=== PATIENT | male | born 1960 | race Caucasian/White ===

== ENCOUNTER → 2017-08-03 | Outpatient (CLI) | payer BC ==
[2017-08-03 12:40] LABS: Partial Thromboplastin Time 22.7 sec (22.0-30.0); Prothrombin Time 9.9 sec (9.0-12.0)
[2017-08-03 12:53] LABS: HCT 38.3 % (39.0-53.0); HGB 13.8 gm/dL (13.0-17.5); MCV 83.3 fL (80.0-100.0); Platelet Count 251 k/uL (150-450); RBC 4.59 m/uL (4.30-5.90); RDW 12.9 % (11.5-15.5)
[2017-08-03 12:55] LABS: Anion Gap 14 mmol/L; Blood Urea Nitrogen 14 mg/dL (9-20); Carbon Dioxide 27 mmol/L (22-30); Chloride 103 mmol/L (98-107); Glucose 114 mg/dL (74-99); Potassium 3.9 mmol/L (3.5-5.1); Sodium 144 mmol/L (137-145)
[2017-08-03 12:56] LABS: ALT 34 U/L (21-72); AST 39 U/L (17-59); Albumin 4.2 g/dL (3.5-5.0); Alkaline Phosphatase 108 U/L (38-126); Calcium 9.7 mg/dL (8.4-10.2); Total Bilirubin 0.6 mg/dL (0.2-1.3); Total Protein 7.2 g/dL (6.3-8.2)
[2017-08-03 13:06] LABS: Appearance,Urine Clear (Clear); Bilirubin,Urine Negative (Negative); Blood,Urine Moderate (Negative); Color,Urine Yellow; Glucose,Urine (UA) Negative (Negative); Ketones,Urine Negative (Negative); Leukocyte Esterase,Urine Negative (Negative); Mucus,Urine Rare /hpf; Nitrite,Urine Negative (Negative); PH, Urine 5.5 (5.0-8.0); Protein,Urine Trace (Negative); RBC,Urine 40 /hpf (0-5); Specific Gravity,Urine 1.018 (1.001-1.035); Urobilinogen,Urine <2.0 mg/dL (<2.0); WBC,Urine 3 /hpf (0-5)
== END | disposition home or self-care (01) ==
LOC: LABPAT 12:00
PROVIDERS: ATTEND Orthopaedic Surgery
DX: Z01.812 Encounter for preprocedural laboratory examination (principal); Z01.818 Encounter for other preprocedural examination
CPT/HCPCS: 36415; 80053; 81001; 85027; 85610; 85730; 87070; 93005

== ENCOUNTER 2017-08-20 11:03 | Inpatient (IN) | payer BC ==
[2017-08-08 16:23] VITALS: BMI 39.3
[~2017-08-20 11:03] MED LIST: ACETAMINOPHEN TAB 500 MG TAB PO ONE; DEXAMETHASONE SOD PHOSPHATE 10 MG/ML 1 ML VIAL IV ONE; MELOXICAM 7.5 MG TAB PO ONE; MIDAZOLAM 2 MG/2 ML VIAL IV PRN; MORPHINE SULFATE 4MG/4ML SYRG IV PRN; ONDANSETRON 4 MG/2 ML VIAL IVP ONE; ROPIVACAINE 246.25 MG, EPINEPHrine 0.5 MG, KETOROLAC 30 MG, cloNIDine HCL/PF 80 MCG, WA... MISCELLANE ONE; TRANEXAMIC ACID 1,000 MG in SODIUM CHLORIDE 0.9% 50 ML IVPB ONE
[2017-08-20] MEDS ORDERED: LIDOCAINE 1% 20 ML VIAL (10MG/ML) FOR IV START INTRADERMA ONE (13:38)
[2017-08-20] MEDS ORDERED: LACTATED RINGERS 1,000 ML IV ONE ×2 (13:40→15:56)
[2017-08-20] MEDS ORDERED: ROPIVACAINE 1,100 MG, SODIUM CHLORIDE 0.9% 330 ML MISCELLANE PRN ×2 (14:23)
--- NOTE | 2017-08-20 14:24 | P.ONQ ---
Anesthesiology Proc Note - PNB - Peripheral Nerve Block Performed Left Adductor Canal Infusion Time Out Performed: Yes (4111) Procedure Start Time: 14:02 Procedure Stop Time: 14:16 Indication: Acute Post-Operative Pain, Requested by physician Sedation Type: Sedate with meaningful contact maintained Preparation: Sterile Prep Position: Supine Needle Types: Mari Needle Size: 100mm (4") Needle Gauge: 20 Technique: Ultrasound Injectate: 0.5% Ropivacaine (see comment for volume) (30 mls Ropivacaine 0.5%) Blood Aspirated: No Pain Paresthesia on Injection Noted: No Resistance on Injection: Normal Events: Uneventful and Well Tolerated
[2017-08-20] MEDS ORDERED: SODIUM CHLORIDE 0.9% 100 ML BAG ONE (14:25)
[2017-08-20] MEDS ORDERED: PHENYLEPHRINE-0.9% NACL SYG 1 MG/10 ML SYRINGE ONE (14:25)
[2017-08-20] MEDS ORDERED: MIDAZOLAM 2 MG/2 ML VIAL ONE (14:25)
[2017-08-20] MEDS ORDERED: PROPOFOL 10 MG/ML 20 ML VIAL IV ONE (14:25)
[2017-08-20] MEDS ORDERED: fentaNYL (PF) 50 MCG/ML 2 ML AMP ONE (14:25)
[2017-08-20] MEDS ORDERED: LIDOCAINE 1% INJ 10MG/ML (20 ML MDV) ONE (14:25)
[2017-08-20] MEDS ORDERED: TRANEXAMIC ACID 1,000 MG/10 ML VIAL ONE (14:25)
[2017-08-20] MEDS ORDERED: ceFAZolin 3,000 MG in SODIUM CHLORIDE 0.9% IRRIGATIO 3,000 ML IRRIGATION ONE (15:08)
--- NOTE | 2017-08-20 15:55 | P.OP ---
Date of Procedure: 08/20/17 Preoperative Diagnosis: Severe osteoarthritis left knee Postoperative Diagnosis: Severe osteoarthritis left knee Procedure(s) Performed: Left total knee arthroplasty Implants: Chaudhari and Nephew Oxinium femoral component size 7, left Chaudhari & Nephew Donna II left nonporous tibial baseplate size 7 Chaudhari [employer] Nephew size 9 mm Legion XLPE dished articular insert, size 7-8 Chaudhari [employer] Nephew Donna II resurfacing patellar component, 35 mm All components were cemented using Marta bone cement.. The articulation is Oxinium on polyethylene. Anesthesia: spinal Surgeon: Lui Lainez [employer] Inspector #1: Linh Lion Estimated Blood Loss (ml): 50 Pathology: other (Bone and cartilage) Condition: stable Disposition: PACU Indications for Procedure: After failure of conservative treatment we discussed the surgical and nonsurgical treatment options at length. Patient wishes to proceed with a total knee arthroplasty. Complications specific to this procedure were discussed at length, including but not limited to infection, bleeding, stiffness , and nerve injury. Patient is aware of all these complications and informed consent was obtained Operative Findings: The operative findings are consistent with severe osteoarthritis of the left knee Description of Procedure: Patient was seen in the preoperative area consent was reviewed and operative site was marked with a skin marker. An adductor canal pain catheter was placed by anesthesia in the preoperative area. Patient was then brought to the operating room and given preoperative antibiotics intravenously. A spinal anesthetic was administered by the anesthesia department. A tourniquet was placed on the upper thigh and the lower extremity was prepped and draped in usual sterile fashion. A gram of transexamic acid was given. A universal timeout was then performed which confirmed the patient's name, surgical site, ALLERGIES, and consent. The lower extremity was then exsanguinated and tourniquet was inflated to 250 mmHg. A standard and anterior midline approach to the knee was performed. The skin and subcutaneous tissue was dissected down to the patellar tendon. A medial parapatellar arthrotomy was then performed. The knee was then extended, the patellar was everted, and the knee was again flexed. Anterior horns of both menisci were excised, and a release was performed to the posterior medial aspect of the knee. On gross visual inspection, there was complete loss of articular cartilage in the medial and patellofemoral joint spaces. There was also significant cartilage damage in the lateral compartment. There were multiple periarticular osteophytes which were then removed with a Ronguer. The femoral canal was then opened with the appropriate drill, and the intramedullary femoral cutting guide was then placed and set for 4 of valgus. The distal femoral cutting block was then pinned in place, and the distal femur was then cut. The cutting block was then removed and the cut was checked for flatness. Next, the sizing guide was then placed and set for 3 external rotation based off of the epicondylar axis and Whitesides line. After the femur was sized, the appropriate 4-in-1 cutting block was then pinned in place. The anterior condyles were cut without notching. The posterior and chamfer cuts were performed while protecting the collateral ligaments. The cutting block was then removed, and the femoral canal was plugged with autologous bone. Attention was then directed to the tibia. The remaining ACL was removed with a Ronguer, and the tibia was then gently subluxed forward with a large bent knee retractor. Any remaining menisci was excised. The posterior lateral corner was cauterized in order to cauterize the lateral geniculate artery. The extra medullary tibial cutting guide was then placed, set for the appropriate rotation , slope, and depth of resection. The proximal tibia cutting guide was then pinned in place. Proximal tibia was then cut and sized. Next trials were then placed with the appropriate-sized insert. The knee was able to fully extend and flex to 130 and was stable throughout all range of motion. The knee was then extended, patella everted. Patella was then measured, and then using an osteotomy guide, the patella was cut at the appropriate level. The patella was then measured and drilled and the patella trial was then placed. The knee was then taken through range of motion with the patella trial and the patella tracked normally. The knee was then extended patella trial was then removed and the patella was everted. Knee was then flexed and lug holes were drilled through the femoral trial and the femoral trial was then removed. The tibial was then exposed, and the tibial broach guide was then pinned in place after it was set for the appropriate rotation to allow for the most coverage without overhang. The tibia was then reamed and broached. The cut surfaces of bone were then irrigated with pulsatile lavage. The posterior structures were injected with the ropivacaine solution. The knee was also irrigated with Irrisept solution. The components were then opened, the cement was mixed, and the components were then cemented in place. The cement was allowed to harden with the knee in full extension. While the cement was hardening, the remaining soft tissues were then injected with a ropivacaine solution, which consisted of 246.25 mg of ropivacaine, 0.5 mg of epinephrine, 30 mg of Toradol, 80 g of clonidine, and 48.45 mL of sterile water, for a total of 100 mL of fluid injected. After the cemented hardened. The tourniquet was released, and hemostasis was obtained. A second gram of transexamic acid was given. The knee was again irrigated. The knee was again taken through range of motion and found to be stable throughout all range of motion of 0-130 , and the patella tracked normally. The fascia was then closed with #2 strata fix suture. The subcutaneous tissue was closed with 3-0 Vicryl and 3-0 strata fix. Dermabond glue was used for the skin and placed with the knee in flexion. The patient was placed in a sterile silver dressing. Patient was then transferred to recovery room in stable condition. The assistant facility manager LISSETH Humphrey was required due the complexity surgery and the need for a skilled surgical tech. She assisted in positioning, draping, retraction, and closure of the wound.
[2017-08-20] MEDS ORDERED: hydrOXYzine PAMOATE 25 MG CAP PO PRN (16:28)
[2017-08-20] MEDS ORDERED: MORPHINE SULFATE 4MG/4ML SYRG IVP PRN ×3 (16:28)
[2017-08-20] MEDS ORDERED: NA PHOS,M-B/NA PHOS,DI-BA 133 ML ENEMA RECTAL PRN (16:28)
[2017-08-20] MEDS ORDERED: ONDANSETRON 4 MG/2 ML VIAL IVP PRN (16:28)
[2017-08-20] MEDS ORDERED: DIAZEPAM 5 MG TAB PO PRN ×2 (16:28)
[2017-08-20] MEDS ORDERED: BISACODYL 10 MG SUPP RECTAL PRN (16:28)
[2017-08-20] MEDS ORDERED: HYDROcodone/APAP 5-325MG 1 EACH TAB PO PRN ×2 (16:28)
[2017-08-20] MEDS ORDERED: NALOXONE 0.4 MG/ML 1 ML VIAL IV PRN (16:28)
[2017-08-20] MEDS ORDERED: MAGNESIUM HYDROXIDE 2,400 MG/10 ML CUP PO PRN (16:28)
--- NOTE | 2017-08-20 16:53 | XR ---
EXAMINATION TYPE: XR knee limited LT DATE OF EXAM: 08/20/2017 COMPARISON: NONE HISTORY: Postop knee surgery TECHNIQUE: 2 views FINDINGS: There is a left knee prosthesis. Components appear in anatomic position. IMPRESSION: No complicating process seen.
[2017-08-20] MEDS: LACTATED RINGERS 1,000 ML IV SCH (17:43)
--- NOTE | 2017-08-20 18:11 | P.CONS ---
History of Present Illness - Reason for Consult Recommendations regarding hyperlipidemia medications perioperative consulta - History of Present Illness Patient was admitted for left knee arthroplasty patient successfully underwent surgery patient is clinically doing well patient does have history of sleep apnea hyperlipidemia. Patient denied any fever chills patient did not pass gas and but does have good bowel sounds Review of Systems REVIEW OF SYSTEMS: CONSTITUTIONAL: No fever, no malaise, no fatigue. HEENT: No recent visual problems or hearing problems. Denied any sore throat. CARDIOVASCULAR: No chest pain, orthopnea, PND, no palpitations, no syncope. PULMONARY: No shortness of breath, no cough, no hemoptysis. GASTROINTESTINAL: No diarrhea, no nausea, no vomiting, no abdominal pain. Normoactive bowel sounds. NEUROLOGICAL: No headaches, no weakness, no numbness. HEMATOLOGICAL: Denies any bleeding or petechiae. GENITOURINARY: Denies any burning micturition, frequency, or urgency. MUSCULOSKELETAL/RHEUMATOLOGICAL: Denies any joint pain, swelling, or any muscle pain. ENDOCRINE: Denies any polyuria or polydipsia. The rest of the 14-point review of systems is negative. Past Medical History Past Medical History: Osteoarthritis (OA), Sleep Apnea/CPAP/BIPAP Additional Past Medical History / Comment(s): uses CPAP, currently has lower right abd. hernia History of Any Multi-Drug Resistant Organisms: None Reported Past Surgical History: Cholecystectomy, Hernia Repair, Orthopedic Surgery Additional Past Surgical History / Comment(s): arthroscopy knees, sinus surg., testicular torsion, pilonidal cyst removed Past Anesthesia/Blood Transfusion Reactions: No Reported Reaction Past Psychological History: No Psychological Hx Reported Smoking Status: Never smoker Past Alcohol Use History: Occasional Past Drug Use History: None Reported - Past Family History Brother(s) Family Medical History: Cancer Medications and Allergies Home Medications Medication Instructions Recorded Confirmed Type Aspirin 81 mg PO DAILY 08/08/17 08/20/17 History Atorvastatin [Lipitor] 10 mg PO DAILY@1600 08/08/17 08/20/17 History Cetirizine HCl [Zyrtec] 10 mg PO DAILY 08/08/17 08/20/17 History Multivitamin [Men's Multi-Vitamin] 1 tab PO DAILY 08/08/17 08/20/17 History Allergies Allergy/AdvReac Type Severity Reaction Status Date / Time No Known Allergies Allergy Verified 08/20/17 17:53 Physical Exam Vitals: Vital Signs Temp Pulse Pulse Resp BP BP Pulse Ox 08/20/17 17:08 76 16 124/60 97 08/20/17 16:57 70 16 122/58 95 08/20/17 16:42 75 16 124/63 93 L 08/20/17 16:27 96.8 F L 76 18 118/67 91 L 08/20/17 13:36 97.8 F 86 18 160/80 94 L Intake and Output 08/20/17 08/20/17 08/20/17 06:59 14:59 22:59 Intake Total 1050 101 Output Total 50 Balance 1050 51 Intake: IV 1050 101 Output: Estimated Blood Loss 50 Other: Weight 131.542 kg PHYSICAL EXAMINATION: GENERAL: The patient is alert and oriented x3, not in any acute distress. Well developed, well nourished. HEENT: Pupils are round and equally reacting to light. EOMI. No scleral icterus. No conjunctival pallor. Normocephalic, atraumatic. No pharyngeal erythema. No thyromegaly. CARDIOVASCULAR: S1 and S2 present. No murmurs, rubs, or gallops. PULMONARY: Chest is clear to auscultation, no wheezing or crackles. ABDOMEN: Soft, nontender, nondistended, normoactive bowel sounds. No palpable organomegaly. MUSCULOSKELETAL: Deferred to the orthopedic surgery EXTREMITIES: No cyanosis, clubbing, or pedal edema. NEUROLOGICAL: Gross neurological examination did not reveal any focal deficits. SKIN: No rashes. Assessment and Plan Plan: -Hyperlipidemia patient will be resumed on a statin -sleep apnea patient continue his CPAP machine -Left knee arthroplasty: Pain management and DVT prophylaxis per primary service
[2017-08-20] MEDS ORDERED: ASPIRIN 325 MG TAB PO SCH (21:00)
[2017-08-20] MEDS ORDERED: SENNOSIDES-DOCUSATE SODIUM 1 EACH TAB PO SCH (21:00)
[2017-08-20] MEDS: SODIUM CHLORIDE 0.9% 1,000 ML IV SCH (22:17)
[2017-08-21] MEDS: LACTATED RINGERS 1,000 ML IV SCH (05:26)
--- NOTE | 2017-08-21 06:57 | P.PN ---
Progress Note - Text Progress Note Date: 08/21/17 57 yo male, status post left total knee replacement. Patient received the adductor canal catheter. Ropivacaine 0.2% at 8 mls/hr. Patient was seen today at 7:15 AM. Patient was sitting in bed comfortably. VAS score of 0/10 no complains overnight. Assessment and plan: patient will be sent home with the adductor canal pump. Adequate pain control.
[2017-08-21 07:34] LABS: Basophils % (A) 0 %; Eosinophils % (A) 0 %; HCT 36.2 % (39.0-53.0); HGB 12.8 gm/dL (13.0-17.5); Lymphocytes # (A) 1.7 k/uL (1.0-4.8); Lymphocytes % (A) 12 %; MCH 29.8 pg (25.0-35.0); MCHC 35.2 g/dL (31.0-37.0); MCV 84.7 fL (80.0-100.0); Mean Platelet Volume 7.4; Monocytes # (A) 0.8 k/uL (0-1.0); Monocytes % (A) 6 %; Neutrophils # (A) 11.4 k/uL (1.3-7.7); Neutrophils % (A) 81 %; Platelet Count 245 k/uL (150-450); RBC 4.28 m/uL (4.30-5.90); RDW 12.9 % (11.5-15.5); WBC 14.2 k/uL (3.8-10.6)
--- NOTE | 2017-08-21 08:48 | P.DS ---
Providers Date of admission: 08/20/17 13:14 Expected date of discharge: 08/21/17 Attending physician: Lui Lainez Consults: 08/20/17 16:28 Consult Physician Routine Consulting Provider: Corona Paris Consult Reason/Comments: medical management Do you want consulting provider notified?: Yes 08/20/17 16:56 Consult Physician Routine Consulting Provider: Baldemar Shane Consult Reason/Comments: medical managment Do you want consulting provider notified?: Yes Primary care physician: Corona Paris - Discharge Diagnosis(es) (1) Primary osteoarthritis of left knee Current Visit: Yes Status: Acute (2) S/P total knee arthroplasty Current Visit: Yes Status: Acute Hospital Course: This is a 57-year-old male with known history of degenerative arthritis of the left knee. The patient presents for evaluation. After discussion and consideration patient elects to proceed with total knee arthroplasty. The patient is seen preoperatively by Dr. Lainez and medically cleared for surgery by their primary care physician. Patient is admitted to [facility] on 08/20/2017 for total knee arthroplasty. The procedures performed without complication or sequelae. The patient is doing well postoperatively. Labs and vital signs are stable on day of discharge. On day of discharge patient's knee incision is healing well. There is minimal erythema. There is no drainage noted at this time. There is minimal soft tissue swelling to the knee. Patient has full foot and ankle motion without difficulty or pain. Neurovascular status to the left lower extremity is intact. Patient is discharged home in good condition. Please see med rec for accurate list of home medications. Plan - Discharge Summary Discharge Rx Participant: Yes New Discharge Prescriptions: New Aspirin 325 mg PO BID #60 tab HYDROcodone/APAP 5-325MG [[place] 5-325] 1 - 2 tab PO Q4-6H PRN #90 tab PRN Reason: Pain Sennosides [Senokot] 1 tab PO BID #60 tablet No Action Cetirizine HCl [Zyrtec] 10 mg PO DAILY Atorvastatin [Lipitor] 10 mg PO DAILY@1600 Aspirin 81 mg PO DAILY Multivitamin [Men's Multi-Vitamin] 1 tab PO DAILY Discharge Medication List Aspirin 81 mg PO DAILY 08/08/17 [History] Atorvastatin [Lipitor] 10 mg PO DAILY@1600 08/08/17 [History] Cetirizine HCl [Zyrtec] 10 mg PO DAILY 08/08/17 [History] Multivitamin [Men's Multi-Vitamin] 1 tab PO DAILY 08/08/17 [History] Aspirin 325 mg PO BID #60 tab 08/21/17 [Rx] HYDROcodone/APAP 5-325MG [[place] 5-325] 1 - 2 tab PO Q4-6H PRN #90 tab 08/21/17 [ Rx] Sennosides [Senokot] 1 tab PO BID #60 tablet 08/21/17 [Rx] Follow up Appointment(s)/Referral(s): Corona Paris DO [Primary Care Provider] - 1 Week Lui Lainez DO [Doctor of Osteopathic Medicine] - 2 Weeks Ambulatory/Diagnostic Orders: Continuous Passive Motion (CPM) Machine [DME.AMB1] Time Frame: 3 Weeks, Location : Determined By Patient Activity/Diet/Wound Care/Special Instructions: Weightbearing as tolerated with a walker CPM 5-6h daily Leave dressing intact. May be removed by home care nurse in 10-14 days. May shower with dressing on. [facility] with questions or concerns [phone] Discharge Disposition: HOME WITH HOME HEALTH SERVICES
[2017-08-21] MEDS ORDERED: ASPIRIN 81 MG PO SCH (09:00)
[2017-08-21] MEDS ORDERED: MELOXICAM 7.5 MG TAB PO SCH (09:00)
[2017-08-21] MEDS: SODIUM CHLORIDE 0.9% 1,000 ML IV SCH (10:23)
[2017-08-21] MEDS ORDERED: ASPIRIN 325 MG TAB PO SCH (10:30)
[2017-08-21 14:54] VITALS: BP 109/62; PULSE 85; RESP 18; TEMP 97.6
[2017-08-21] MEDS ORDERED: ATORVASTATIN 10 MG TAB PO SCH (16:00)
--- NOTE | 2017-08-22 12:35 | CDI ---
Last Revision, April 2017 Documentation Clarification Form Date: 08/22/17 From: Lyn Herrera Admit Date: 08/20/2017 1:14:00 PM Patient Name: Corona Gilliland Visit Number: [id number] Discharge Date: 08/21/17 ATTENTION: The Clinical Documentation Specialists (CDI) and [facility] Coding Staff appreciate your assistance in clarifying documentation. Please respond to the clarification below the line at the bottom and electronically sign. The CDI & [facility] Coding staff will review the response and follow-up if needed. Please note: Queries are made part of the Legal Health Record. If you have any questions, please contact the author of this message via ITS. Dr. Lui Lainez Above normal BMI is documented in the scanned consult. Patient history/risk factors: above normal BMI Clinical Indicators: BMI 39.3 Please document if the patient 1. Obese 2. Morbidly Obese 3. other MTDD
--- NOTE | 2017-08-27 14:51 | CDI ---
Last Revision, April 2017 Documentation Clarification Form Date: 08/27/17 From: Lyn Herrera Admit Date: 08/20/2017 1:14:00 PM Patient Name: Corona Gilliland Visit Number: [id number] Discharge Date: 08/21/17 ATTENTION: The Clinical Documentation Specialists (CDI) and [facility] Coding Staff appreciate your assistance in clarifying documentation. Please respond to the clarification below the line at the bottom and electronically sign. The CDI & [facility] Coding staff will review the response and follow-up if needed. Please note: Queries are made part of the Legal Health Record. If you have any questions, please contact the author of this message via ITS. Dr. Lui Lainez Above normal BMI is documented in the scanned consult. Patient history/risk factors: above normal BMI Clinical Indicators: BMI 39.3 Please document if the patient 1. Obese 2. Morbidly Obese 3. other MTDD
== END 2017-08-21 16:30 | disposition home health service (06) | DRG 470 ==
LOC: 2ORMAIN 13:14 → 3SUR 16:22
PROVIDERS: ADMIT Orthopaedic Surgery; ATTEND Orthopaedic Surgery
PROC: 0SRD069 Replacement of Left Knee Joint with Oxidized Zirconium on Polyethylene Synthetic Substitute, Cemented, Open Approach (ICD-10-PCS; principal; 2017-08-20 16:00)
DX: M17.0 Bilateral primary osteoarthritis of knee (principal); E78.5 Hyperlipidemia, unspecified; M25.762 Osteophyte, left knee; G47.33 Obstructive sleep apnea (adult) (pediatric); M48.19 Ankylosing hyperostosis [Forestier], multiple sites in spine; M54.17 Radiculopathy, lumbosacral region; R73.09 Other abnormal glucose; Z90.49 Acquired absence of other specified parts of digestive tract; Z87.19 Personal history of other diseases of the digestive system; Z79.899 Other long term (current) drug therapy; Z79.82 Long term (current) use of aspirin; Z80.9 Family history of malignant neoplasm, unspecified; Z87.438 Personal history of other diseases of male genital organs; Z79.1 Long term (current) use of non-steroidal anti-inflammatories (NSAID); Z82.49 Family history of ischemic heart disease and other diseases of the circulatory system
CPT/HCPCS: 85025; 88300

== ENCOUNTER → 2020-09-02 | Outpatient (CLI) | payer BC ==
--- NOTE | 2020-09-02 10:13 | CT ---
EXAMINATION TYPE: CT urogram wo/w con DATE OF EXAM: 09/02/2020 COMPARISON: none HISTORY: hematuria CT DLP: 5542.9 mGycm CONTRAST: Performed and without and with IV Contrast, patient injected with 100 mL of Isovue 370. CT Urography was performed with unenhanced followed by enhanced images of the kidneys, ureters and ur inary bladder. Delayed images were obtained. 3d reconstruction was performed at a separate work sta tion. FINDINGS: KIDNEYS/BLADDER: There is a calculus in the region of the right renal pelvis measuring 1.3 cm in cran iocaudal dimension by 1.3 cm in transverse dimension. There is no significant hydronephrosis. The rig ht kidney is low-lying and partially pelvic in location. No evidence for left-sided nephrolithiasis. Left renal cyst is identified measuring 3.1 cm. The urinary bladder is unremarkable. LUNG BASES-: No visible nodule. No infiltrate. LIVER/GB: The gallbladder surgically absent. Cholecystectomy clips are in place. No space occupying h epatic lesion. Biliary tree is of normal caliber. PANCREAS: No inflammation. No distinct mass. SPLEEN: No splenic enlargement. No lesion seen. ADRENALS: No nodule. No thickening. BOWEL: Normal appendix. Normal bowel caliber. No inflammation. GENITAL ORGANS: No gross abnormality. LYMPH NODES: No greater than 1cm abdominal or pelvic lymph nodes are appreciated. AORTA: No significant abnormality. OSSEOUS STRUCTURES: No significant abnormality is seen. OTHER: No significant additional abnormality is seen. IMPRESSION: 1. Nonobstructing calculus right renal pelvis.
== END | disposition home or self-care (01) ==
LOC: RADCTMAIN 08:19
PROVIDERS: ATTEND Urology
DX: N20.0 Calculus of kidney (principal)
CPT/HCPCS: 74178; 74400; Q9967

== ENCOUNTER 2020-10-06 06:04 | Day surgery (SDC) | payer BC ==
[2020-10-05 08:48] VITALS: BMI 39.3
[~2020-10-06 06:04] MED LIST changes: -ACETAMINOPHEN TAB 500 MG TAB PO ONE; -DEXAMETHASONE SOD PHOSPHATE 10 MG/ML 1 ML VIAL IV ONE; +DEXAMETHASONE SOD PHOSPHATE 4 MG/ML 1 ML VIAL IV ONE; +HYDROmorphone 0.5 MG/0.5 ML SYRINGE IVP PRN; +LACTATED RINGERS 1,000 ML IV SCH; -MELOXICAM 7.5 MG TAB PO ONE; -MIDAZOLAM 2 MG/2 ML VIAL IV PRN; -MORPHINE SULFATE 4MG/4ML SYRG IV PRN; -ROPIVACAINE 246.25 MG, EPINEPHrine 0.5 MG, KETOROLAC 30 MG, cloNIDine HCL/PF 80 MCG, WA... MISCELLANE ONE; -TRANEXAMIC ACID 1,000 MG in SODIUM CHLORIDE 0.9% 50 ML IVPB ONE
--- NOTE | 2020-10-06 06:31 | P.GSHP ---
History of Present Illness H&P Date: 10/01/20 Chief Complaint: Gross hematuria The patient is a 60-year-old white male with a two-month history of intermittent gross painless hematuria. He has an unremarkable urologic history. He takes tamsulosin for BPH. Computed tomography scan showed a 13 mm right renal pelvic calculus, which is presumed to be the source of hematuria. I had a lengthy discussion with the patient regarding alternative treatment options, namely extracorporal shockwave lithotripsy (ESWL) versus ureteroscopy with laser lithotripsy. He has elected to undergo the latter. - Constitutional Constitutional: Denies chills, Denies fever - Genitourinary (Male) Genitourinary: Reports hematuria, Denies dysuria, Denies flank pain Past Medical History Past Medical History: Osteoarthritis (OA), Sleep Apnea/CPAP/BIPAP Additional Past Medical History / Comment(s): uses CPAP, currently has lower right abd. hernia History of Any Multi-Drug Resistant Organisms: None Reported Past Surgical History: Cholecystectomy, Hernia Repair, Orthopedic Surgery Additional Past Surgical History / Comment(s): arthroscopy knees, sinus surg., testicular torsion, pilonidal cyst removed Past Anesthesia/Blood Transfusion Reactions: No Reported Reaction Past Psychological History: No Psychological Hx Reported Past Alcohol Use History: Occasional Past Drug Use History: None Reported - Past Family History Brother(s) Family Medical History: Cancer Medications and Allergies Home Medications Medication Instructions Recorded Confirmed Type Atorvastatin [Lipitor] 10 mg PO DAILY@1600 08/08/17 10/05/20 History Cetirizine HCl [Zyrtec] 10 mg PO DAILY 08/08/17 10/05/20 History Multivitamin [Men's Multi-Vitamin] 1 tab PO DAILY 08/08/17 10/05/20 History Aspirin 81 mg PO DAILY 10/05/20 10/05/20 History Cholecalciferol [Vitamin D3 (25 50 mcg PO DAILY 10/05/20 10/05/20 History Mcg = 1000 Iu)] Tamsulosin [Flomax] 0.4 mg PO DAILY 10/05/20 10/05/20 History Allergies Allergy/AdvReac Type Severity Reaction Status Date / Time No Known Allergies Allergy Verified 10/05/20 08:45 Surgical - Exam - General well developed, well nourished, no distress - Neck no masses, trachea midline - Respiratory normal respiratory effort - Abdomen Abdomen: soft, non tender, no guarding, no rigid, no rebound - Genitourinary normal penis with no external lesions, testicles non-tender - Rectum Rectum: normal sphincter tone, no masses, other (Prostate mildly enlarged and smooth) - Psychiatric oriented to time, oriented to person, oriented to place, speech is normal, memory intact Results - Imaging CT scan - abdomen: report reviewed, image reviewed Assessment and Plan (1) Calculus of kidney Current Visit: No Status: Acute Code(s): N20.0 - CALCULUS OF KIDNEY SNOMED Code(s): 26947515 Plan: Cystoscopy, right ureteroscopy with Holmium laser lithotripsy and possible stone basketing, right ureteral stent insertion. The procedure has been reviewed in detail with the patient. He has been made aware of potential risks, which include anesthesia, bleeding, infection, and ureteral injury. He is aware of the possible need for a secondary treatment.
[2020-10-06] MEDS ORDERED: LACTATED RINGERS 1,000 ML IV ONE ×2 (06:40→09:41)
[2020-10-06] MEDS ORDERED: DEXAMETHASONE SOD PHOSPHATE 4 MG/ML 1 ML VIAL IVP ONE (06:40)
[2020-10-06] MEDS ORDERED: ONDANSETRON 4 MG/2 ML VIAL IVP ONE (06:40)
[2020-10-06] MEDS ORDERED: fentaNYL (PF) 50 MCG/ML 2 ML AMP ONE (07:31)
[2020-10-06] MEDS ORDERED: MIDAZOLAM 2 MG/2 ML VIAL ONE (07:31)
[2020-10-06] MEDS ORDERED: ROCURONIUM 10 MG/ML (5 ML VIAL) IV ONE (07:31)
[2020-10-06] MEDS ORDERED: LIDOCAINE 1% INJ 10MG/ML (20 ML MDV) ONE (07:31)
[2020-10-06] MEDS ORDERED: SUCCINYLCHOLINE CHLORIDE 100 MG/5 ML SYR IV ONE (07:31)
[2020-10-06] MEDS ORDERED: GLYCOPYRROLATE 0.2 MG/ML 2 ML VIAL ONE (07:31)
[2020-10-06] MEDS ORDERED: NEOSTIGMINE 1 MG/ML 10 ML VIAL ONE (07:31)
[2020-10-06] MEDS ORDERED: PROPOFOL 10 MG/ML 20 ML VIAL IV ONE (07:31)
--- NOTE | 2020-10-06 07:32 | XR ---
EXAMINATION TYPE: XR KUB DATE OF EXAM: 10/06/2020 6:24 AM CLINICAL HISTORY: Kidney stones COMPARISON: 09/02/2020 CT TECHNIQUE: Single supine KUB image of the abdomen is obtained. FINDINGS: Stool and gas obscure visualization of the renal contours. There is a rounded density proje cting at the right L5-S1 level measuring 1.6 cm, suggestive of a ureteral calculus, has advanced sinc e prior exam. Presumed calcified pelvic phleboliths. Cholecystectomy clips. IMPRESSION: 1. 1.6 cm Rounded density projecting over the right L5-S1 level may represent a right ureteral calcul us.
[2020-10-06 10:08] VITALS: TEMP 98
--- NOTE | 2020-10-06 10:26 | P.OP ---
Date of Procedure: 10/06/20 Preoperative Diagnosis: Right Renal Calculus Postoperative Diagnosis: Same Procedure(s) Performed: Cystoscopy, right ureteroscopy with Holmium laser lithotripsy, right ureteral stent insertion Anesthesia: JEANA Surgeon: Carlton Weinberg Estimated Blood Loss (ml): 10 IV fluids (ml): 900 Pathology: other (Stone fragments for chemical analysis) Condition: stable Disposition: PACU Indications for Procedure: The patient is a 60-year-old white male with a two-month history of intermittent gross painless hematuria. He has an unremarkable urologic history. He takes tamsulosin for BPH. Computed tomography scan showed a 13 mm right renal pelvic calculus, which is presumed to be the source of hematuria. I had a lengthy discussion with the patient regarding alternative treatment options, namely extracorporal shockwave lithotripsy (ESWL) versus ureteroscopy with laser lithotripsy. He has elected to undergo the latter. Operative Findings: 13 mm right renal pelvic calculus, fragmented completely. Description of Procedure: The patient was taken to the operating room and placed in the dorsolithotomy position, with legs supported in Ramon stirrups. The external genitalia was prepped and draped sterilely. The 30 lens was used to introduce the 21-[place]an Vásquez cystoscopic sheath through the urethra and into the bladder under direct vision. The prostatic urethra showed evidence of mild lateral lobe enlargement. The bladder was examined in its entirety. Both ureteral orifices were normal anatomic location and configuration, and clear urine effluxed from both. No tumors or foreign bodies were seen. A 0.038 inch Glidewire was passed through the cystoscope. The ureteral orifice was cannulated, and the Glidewire was advanced up to the renal pelvis, which was lower than anticipated. The cystoscope was removed, and an 11/13-Venezuelan ureteral access catheter was passed over the wire, up to the proximal ureter. The flexible ureteroscope was then passed through the ureteral access catheter sheath, up to the stone. The 272 micron Holmium laser probe was passed through the ureteroscope, and lithotripsy was performed. Dusting was performed primarily, until the calculus was small en ough that it fell into a lower pole calyx. The ureteroscope was advanced, and the remainder of the calculus was treated using a combination of dusting and fragmenting, leaving no residual calculus fragments exceeding 1-2 mm. The ureteroscope was slowly withdrawn under direct vision. There were no residual calculus fragments within the ureter, and no evidence of ureteral trauma. The cystoscope was replaced into the bladder. The Glidewire was passed up to the right renal pelvis, and a 24 cm, 6-[place]an double-J ureteral stent was placed over the wire. Proper stent positioning was verified fluoroscopically and endoscopically. The bladder was emptied and the cystoscope removed. Calculus fragments which had passed through the ureteral access catheter sheath were collected and sent for stone analysis. The patient tolerated the procedure well and was taken to the recovery room in stable condition. [facility] [place] Report: Procedure Acuity: Elective Stone Size and Location: 13 mm, right renal pelvis Ureteral Dilation: No Ureteral Access Sheath Used: Yes Stone Sent for Analysis: Yes All Stones/Fragments Were Removed with a Basket: No Complications: No Preoperative Antibiotics Given: Yes Stent Placed: Yes If Stent Placed, Was String Left Attached: No If Stent Placed, When is it to be Removed: 2 weeks Discharge Medications: Tamsulosin
[2020-10-06] MEDS ORDERED: KETOROLAC 15 MG/ML 1 ML VIAL IVP ONE (10:27)
--- NOTE | 2020-10-06 10:57 | FL ---
Fluoroscopy HISTORY: Lithotripsy for kidney stones 1.24 minutes fluoroscopy time supplied to the referring clinician. 2 intraoperative C-arm images doc ument the procedure. See dictated report from urology.
[2020-10-06 11:59] VITALS: BP 135/83; PULSE 72; RESP 18
== END 2020-10-06 12:35 | disposition home or self-care (01) ==
LOC: OR 06:04
PROVIDERS: ATTEND Urology
DX: R31.0 Gross hematuria (principal); N20.0 Calculus of kidney; N40.0 Benign prostatic hyperplasia without lower urinary tract symptoms; M19.90 Unspecified osteoarthritis, unspecified site; G47.33 Obstructive sleep apnea (adult) (pediatric); E78.5 Hyperlipidemia, unspecified; K46.9 Unspecified abdominal hernia without obstruction or gangrene; Z90.49 Acquired absence of other specified parts of digestive tract; Z98.890 Other specified postprocedural states; Z96.651 Presence of right artificial knee joint; Z80.9 Family history of malignant neoplasm, unspecified; Z79.82 Long term (current) use of aspirin; Z79.899 Other long term (current) drug therapy
CPT/HCPCS: 82365; 74018; 52356; C2625; C1769; J2250; J1100; J2710; J0690; J2405; J2001; J3010; J1885; J0330; J2704; J1170

== ENCOUNTER → 2020-11-23 | Outpatient (CLI) | payer BC ==
--- NOTE | 2020-11-24 07:53 | US ---
EXAMINATION TYPE: US kidneys/renal and bladder DATE OF EXAM: 11/23/2020 COMPARISON: 09/02/2020 CLINICAL HISTORY: N20.0 kidney stone. Hx of kidney stone removed on right x1 month ago. EXAM MEASUREMENTS: Right Kidney: 10.0 x 4.8 x 4.3 cm Left Kidney: 13.0 x 5.7 x 5.2 cm Right Kidney: No hydronephrosis or masses seen 3.2 x 2.6 x 2.4 cm Left Kidney: Hypoechoic area seen lower pole measuring up to 3.2 cm Bladder: anechoic not fully distended Bilateral Jets seen: No There is no evidence for hydronephrosis at this point in time. No nephrolithiasis is seen. The urina ry bladder is underfilled. IMPRESSION: Left lower pole cyst.
--- NOTE | 2020-11-25 10:35 | XR ---
EXAMINATION TYPE: XR KUB DATE OF EXAM: 11/23/2020 4:34 PM CLINICAL HISTORY: Kidney stone. No pain TECHNIQUE: Single supine KUB image of the abdomen is obtained. COMPARISON: 10/06/2020. FINDINGS: Scattered gas is seen in non-distended small bowel loops. Gas and fecal material is seen in non-distended colon. There is no visceromegaly, pneumoperitoneum, or abnormal calcification apprecia elizabet. The lung bases are clear and the osseous structures are intact. There are surgical clips of the right upper abdomen. IMPRESSION: Overall nonobstructive bowel gas pattern.
== END | disposition home or self-care (01) ==
LOC: RADUSWWP 16:00
PROVIDERS: ATTEND Urology
DX: N28.1 Cyst of kidney, acquired (principal)
CPT/HCPCS: 74018; 76770